=== PATIENT | male | born 2005 | race Two or more races ===

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

== ENCOUNTER 2024-08-01 04:16 | Emergency (ER) | payer BC, MEDICAID ==
[~2024-08-01] VITALS: Ht 180.3 cm; Wt 102.2 kg
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
[2024-08-01] MEDS ORDERED: GABA300T4 PO (05:47)
[2024-08-01] MEDS ORDERED: CYCL-838 PO (05:47)
[2024-08-01 06:20] VITALS: BP 130/80; PULSE 85; RESP 20; TEMP 99; O2SAT 100
[2024-08-01] MEDS: HYDROcodone-ACET 10/325MG TAB PO ONE (06:31)
== END 2024-08-01 06:30 | disposition home or self-care (01) ==
LOC: ER 04:16 → EDBD 04:16 → ER 06:27
DX: S43.402A Unspecified sprain of left shoulder joint, initial encounter (principal); S63.502A Unspecified sprain of left wrist, initial encounter; S73.102A Unspecified sprain of left hip, initial encounter; S60.811A Abrasion of right wrist, initial encounter; M54.9 Dorsalgia, unspecified; R07.89 Other chest pain; Z79.899 Other long term (current) drug therapy; V89.2XXA Person injured in unspecified motor-vehicle accident, traffic, initial encounter; Y93.89 Activity, other specified; Y92.89 Other specified places as the place of occurrence of the external cause; Y99.8 Other external cause status
CPT/HCPCS: 71046; 72170; 73030; 73100